=== PATIENT | male | born 1995 | race Caucasian/White ===

== ENCOUNTER 2021-12-07 17:12 | Emergency (ER) | payer BC, SELFPAY ==
--- NOTE | ~2021-12-07 | XR_ITS ---
EXAMINATION: XR foot LT min 3V DATE: 12/07/2021 17:34 INDICATION: Left foot pain post injury TECHNIQUE: Dorsoplantar, two oblique and lateral views of the left foot were obtained. COMPARISON: None. FINDINGS: Bone alignment is normal. No fracture. 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 Likely benign nonaggressive appearing small lytic lesion with narrow zone of transition with thin sclerotic margins at the medial head of the left first proximal phalanx. Sma ll Achilles calcaneal spur. Soft tissues are unremarkable. IMPRESSION: 1. No acute osseous abnormality. 2. Likely benign small nonaggressive appearing lytic lesion at the medial head of the left first prox imal phalanx with differential including degenerative cystic change, intraosseous ganglion cyst at th e footplate of the medial collateral ligament or chronic erosion such as in the setting of gout. Reviewed, dictated and finalized at location A. IMPRESSION: 1. No acute osseous abnormality. 2. Likely benign small nonaggressive appearing lytic lesion at the medial head of the left first proximal phalanx with differential including degenerative cys tic change, intraosseous ganglion cyst at the footplate of the medial collatera l ligament or chronic erosion such as in the setting of gout.
[2021-12-07 17:14] VITALS: BP 179/84; PULSE 71; RESP 16; TEMP 36.7; O2SAT 98
--- NOTE | 2021-12-07 17:17 | ED.LOWEXIN ---
HPI - Extremity Injury (Lower) General Chief Complaint: Extremity Injury, Lower Stated Complaint: left foot injury Time Seen by Provider: 12/07/21 17:17 Source: patient Mode of arrival: ambulatory Limitations: no limitations History of Present Illness HPI Narrative: Patient is a 26-year-old male who presents the ED with report of left foot pain. Patient reports he stepped out of his work truck yesterday and missed the step down and landed on his left foot wrong. He is unsure if he rolled it. No pain in the ankle, but woke up this morning with pain in his left lateral foot. He has been able to ambulate, but has pain with this. No significant swelling. No numbness, tingling, weakness. No pain in knee. No other injuries. Patient took ibuprofen 800 mg 30 minutes prior to arrival. Related Data Allergies Allergy/AdvReac Type Severity Reaction Status Date / Time CEFUROXIME AXETIL Allergy Unknown Rash Uncoded 12/07/21 17:16 Review of Systems Review of Systems: CONSTITUTIONAL: Denies fever, chills, or sweats. SKIN: Denies swelling to left foot. MUSCULOSKELETAL: Reports left lateral toe pain. NEUROLOGIC: Denies tingling, numbness, or weakness. All systems reviewed & are unremarkable except as noted in HPI and below PMFSH Past Medical History Medical History (Updated 12/07/21 @ 17:54 by Bijal Miller PA-C) No pertinent past medical history Surgical History Surgical History (Updated 12/07/21 @ 17:27 by Bijal Miller PA-C) No pertinent past surgical history Social History Social History (Updated 12/07/21 @ 17:28 by Bijal Miller PA-C) Smoking status: Never smoker Exam Narrative: GENERAL: Well appearing, obese, non-toxic, in no acute distress. HEAD: Normocephalic, atraumatic. NECK: Supple. No adenopathy, no masses. RESPIRATORY: Airway patent, respirations nonlabored. CARDIOVASCULAR: Regular rate and rhythm without murmurs, rubs, or gallops. Pedal pulses 2+ and equal bilaterally. MUSCULOSKELETAL: Moves all extremities. Minimal decreased flexion range of motion of left toes due to pain. Tenderness to palpation over plantar aspect of left lateral distal foot, worst over third through fifth metatarsal heads. No obvious swelling or bruising. No wounds. SKIN: Warm, dry, normal color. No rashes. NEURO: A&O X3. Speech clear. Cranial nerves II-XII grossly intact. Steady gait. No ataxic movements. PSYCHIATRIC: Appropriate mood and affect. Normal interaction. Course Vital Signs Vital signs: Vital Signs Temperature 98.1 F 12/07/21 17:14 Pulse Rate 71 12/07/21 17:14 Respiratory Rate 16 12/07/21 17:14 Blood Pressure 179/84 H 12/07/21 17:14 Pulse Oximetry 98 12/07/21 17:14 Oxygen Delivery Room Air 12/07/21 17:14 Temperature 98.1 F 12/07/21 17:14 Pulse Rate 71 12/07/21 17:14 Respiratory Rate 16 12/07/21 17:14 Blood Pressure 179/84 H 12/07/21 17:14 Pulse Oximetry 98 12/07/21 17:14 Oxygen Delivery Room Air 12/07/21 17:14 MDM - Extremity Injury (Lower) MDM Narrative Medical decision making narrative: Patient presented to ED with left foot pain status post injury after stepping out of truck yesterday. No significant swelling or bruising noted. Neurovascularly intact on exam. No signs of compartment syndrome. X-ray without acute osseous abnormality, did show cystlike abnormality of left first toe. Discussed findings with patient and mother at bedside. Patient nontender in this region. Patient given kevin bandage and crutches for assistance with ambulation. Discussed RICE treatment and reasons to return to the ED. Medical Records Attestation: I reviewed the patient's medical records. Imaging Data Attestation: I personally reviewed and interpreted this imaging study as follows: Radiologist's impression: ITS Impressions Foot X-Ray 12/07/21 17:39 IMPRESSION: 1. No acute osseous abnormality. 2. Likely benign small nonaggressive appearing lytic lesio
== END 2021-12-07 18:20 | disposition home or self-care (01) ==
PROVIDERS: Emergency Provider General Practice
DX: S93.602A Unspecified sprain of left foot, initial encounter (principal); M89.9 Disorder of bone, unspecified; X50.9XXA Other and unspecified overexertion or strenuous movements or postures, initial encounter
CPT/HCPCS: 73630; 99283